=== PATIENT | male | born 1960 | race Caucasian/White ===

== ENCOUNTER 2025-01-03 07:29 | Day surgery (SDC) | payer OTHER, MEDICARE, SELFPAY ==
--- NOTE | 2025-01-03 | PATH_ITS ---
[facility] Accession Number: [id number] No. of containers..03 Tissue . 01 Material submitted: . PART A: colon - CECUM POLYP X 2 PART B: colon - COLON,DESCENDING POLYP PART C: colon - SIGMOID POLYP . 01 Diagnosis: A. CECAL POLYPS: Tubular/tubulovillous adenomas (two polyps removed). Negative for high-grade dysplasia or malignancy. . B. DESCENDING COLON POLYP: Tubular adenoma. . C. SIGMOID COLON POLYP: Tubulovillous adenoma. Negative for high-grade dysplasia or malignancy. MRV 01/11/2025 1312 Local . 01 Electronically signed: . Spike Fisher MD, PhD, Pathologist NPI- [id number] . 01 Gross description: . A. Received in formalin with two identifiers and cecum polyp x2, are multiple maurer soft tissue fragments and polyps admixed with fecal material. The largest polyp measuring 2.0 x 1.6 x 1.3 cm is sectioned into five pieces. The two outer most pieces are submitted into A1, and the three inner most pieces are submitted into A2. The second largest polyp measuring 2.0 x 1.3 x 0.5 cm is entirely submitted in A3. Four smaller tissue fragments ranging from 0.7 to 1.1 cm are submitted into A4. The remaining presumed fecal matter fragments are filtered and submitted entirely in A5. B. Received in formalin with two identifiers and descending colon polyp x2, are two maurer, soft tissue fragments ranging from 0.6 to 0.6 cm in greatest dimension, entirely submitted in B1. C. Received in formalin with two identifiers and sigmoid polyp, is a single maurer polyp measuring 1.7 x 0.8 x 0.7 cm. Trisected and entirely submitted in C1. ([id number]) /MRV 01/09/2025 1748 Local . 01 Pathologist provided ICD-10: D12.6 . 01 CPT . 430263, [id number], [id number] Specimen Comment: A courtesy copy of this report has been sent to [phone] Performed at: [address] [facility] [address], [place], [place] [id number] MD Cassius Mooney MD Phone: [phone]
[2025-01-03 08:25] VITALS: BP 129/91; PULSE 81; RESP 20; TEMP 36.2; O2SAT 92
[2025-01-03 08:28] VITALS: O2SAT 95
[2025-01-03] MEDS: LACTATED RINGERS 1,000 ML 42 ML IV (08:28)
--- NOTE | 2025-01-03 09:29 | PM.HP.IH.1 ---
History of Present Illness History of Present Illness Date Patient Seen: 01/03/25 Time Patient Seen: 09:29 Chief complaint: Colonoscopy Narrative: Facundo is a 64-year-old man here for colonoscopy. He did have a recent positive Cologuard test. He has never had a colonoscopy before. No family history of colon cancer. [facility] Medical History (Updated 12/22/24 @ 07:34 by Cherelle Rizo RN) Hypertension Measles History of cold sores Chicken pox Social History Smoking Status: Never smoker alcohol intake: current Meds Home Medications and Allergies Home Medications ?Medication ?Instructions ?Recorded ?Confirmed ?Type amlodipine 10 mg tablet 10 mg PO DAILY #90 tabs 12/16/24 01/03/25 Rx losartan 50 mg tablet 50 mg PO DAILY #90 tabs 12/16/24 01/03/25 Rx sodium,potassium,mag sulfates 17.5 See Rx Instructions PO .COMPLEX 12/16/24 01/03/25 Rx gram-3.13 gram-1.6 gram oral soln #354 mL (Suprep Bowel Prep Kit) Allergies Allergy/AdvReac Type Severity Reaction Status Date / Time No Known Drug Allergies Allergy Verified 01/03/25 08:14 Exam Vital Signs (past 8 hours): - 01/03/25 08:25 01/03/25 08:28 Temperature 97.2 F L Pulse Rate 81 Respiratory Rate 20 Blood Pressure 129/91 H Pulse Oximetry 92 95 Oxygen Delivery Method Room Air Oxygen Delivery Method Room Air Const General: No acute distress Assessment & Plan Assessment and plan (1) Positive colorectal cancer screening using Cologuard test: Status: Acute Plan Colonoscopy Time-Based Coding :: [TOTAL MINUTES] spent with patient and on the chart (including review of chart, obtaining history, exam, reviewing outside data, placing orders, documenting exam and treatment plan, and counseling patient) on [DATE]. PROFEE Protection Officer Document charge(s): No
--- NOTE | 2025-01-03 10:39 | PM.OP.COLON ---
Operative Date/Time/Diagnoses Date of procedure: 01/03/25 Time of procedure: 10:39 Pre-op diagnosis: Positive Cologuard test Post-op diagnosis: same Procedure & Clinicians Study performed: Colonoscopy Same procedure(s) as scheduled: Yes Surgeon: Norman King Anesthesia Type: MAC +/- Procedure Notes Procedure in detail: Surgeon: Norman King MD Anesthesia: Pedro Pablo Sprague D.Jad Procedure: The patient was brought to the endoscopy suite, placed in left lateral decubitus position. The patient was connected to monitoring devices. A time-out was performed. Sedation was administered. Once the patient was adequately sedated, a digital rectal exam was performed and was normal. The scope was then inserted and advanced to the cecum where the appendiceal orifice was identified and photographed. The scope was then slowly withdrawn over greater than 6 minutes. The mucosa was thoroughly inspected. There were two polyps in the cecum. One polyp was about 3 cm and was removed piecemeal with a hot snare. Fragments were removed with a combination of suctioned and Newberry net. Second polyp was about 1 cm and was removed with a hot snare. Both polyps were sent together. There was a 1 cm polyp in the descending colon removed with a cold snare. There was a 2 cm polyp on a stalk in the proximal sigmoid colon at roughly 55 cm removed with a hot snare. There was pandiverticulosis. The scope was retroflexed in the rectum. No other abnormalities were found. The scope was straightened and removed. The patient was awakened and brought to recovery. Scope withdrawal time: 46 minutes Sedation time: 53 minutes EBL: 5 mL Findings: 2 cecal polyps, a descending colon polyp and a proximal sigmoid polyp Post-procedure Disposition: PACU
[2025-01-03 10:41] VITALS: BP 124/47; PULSE 62; RESP 15; TEMP 36.1; O2SAT 93
[2025-01-03 10:46] VITALS: BP 125/77; PULSE 65; RESP 23; O2SAT 95
--- NOTE | 2025-01-03 11:11 | SUR.PHASEII ---
pt given discharge instructions and states he understands them Pt has gas pains but states it is moving around and he is feeling better. pt to be discharged with his .
== END 2025-01-03 11:09 | disposition home or self-care (01) ==
PROVIDERS: PCP Physician Assistant; Referring Provider Physician Assistant; Visit Provider Surgery
PROC: 0DJD8ZZ Inspection of Lower Intestinal Tract, Via Natural or Artificial Opening Endoscopic (ICD-10-PCS; CPT 45378; principal; 2025-01-03 09:00)
DX: Z12.11 Encounter for screening for malignant neoplasm of colon (principal); R19.5 Other fecal abnormalities; K57.30 Diverticulosis of large intestine without perforation or abscess without bleeding; D12.0 Benign neoplasm of cecum; D12.4 Benign neoplasm of descending colon; D12.5 Benign neoplasm of sigmoid colon
CPT/HCPCS: 45385; J2704